=== PATIENT | female | born 1960 | race Hispanic/Latino ===

== ENCOUNTER 2016-08-07 15:15 | Emergency (ER) | payer MEDICAID | END 2016-08-07 16:00 | disposition left against medical advice (07) | LOC: ED 15:15 | DX: R10.9 Unspecified abdominal pain (principal); Z88.5 Allergy status to narcotic agent; Z88.8 Allergy status to other drugs, medicaments and biological substances; W19.XXXA Unspecified fall, initial encounter; Y93.89 Activity, other specified; Y99.9 Unspecified external cause status; Y92.89 Other specified places as the place of occurrence of the external cause; Z53.21 Procedure and treatment not carried out due to patient leaving prior to being seen by health care provider ==

== ENCOUNTER 2016-11-15 20:25 | Emergency (ER) | payer MEDICAID ==
[2016-11-15 21:41] LABS: Urine Drugs of Abuse Note Disclamer
[2016-11-15 21:43] LABS: Anion Gap 23 mmol/L; BUN/Creatinine Ratio 23.33; Blood Urea Nitrogen 21 mg/dL (7-17); Carbon Dioxide 20 mmol/L (22-30); Chloride 88.8 mmol/L (98-107); Potassium 3.7 mmol/L (3.6-5.0); Sodium 128 mmol/L (137-145)
[2016-11-15 21:50] LABS: Glucose 571 mg/dL (65-100)
[2016-11-15 21:51] LABS: Basophils % (Auto) 0.9 % (0.0-1.8); Eosinophils % (Auto) 0.2 % (0.0-4.3); Hematocrit 37.4 % (30.3-42.9); Hemoglobin 12.4 gm/dl (10.1-14.3); Mean Corpuscular HGB Conc 33 % (30-34); Mean Corpuscular Volume 78 fl (79-97); Platelet Count 265 K/mm3 (140-440); Red Cell Distribution Width 17.5 % (13.2-15.2); White Blood Count 12.2 K/mm3 (4.5-11.0)
[2016-11-15 21:54] LABS: Bacteria,Urine 3+ /HPF (Negative); Bilirubin,Urine NEG (Negative); Blood,Urine SM (Negative); Ketones,Urine NEG (Negative); Leukocyte Esterase,Urine TR (Negative); Mucus,Urine FEW /HPF; Nitrite,Urine NEG (Negative); Urobilinogen,Urine < 2.0 mg/dL (<2.0)
[2016-11-15 22:06] LABS: Mean Corpuscular Hemoglobin 26 pg (28-32)
[2016-11-16] MEDS ORDERED: PERCOCET 5/325 PO ONE (08:01)
[2016-11-16] MEDS ORDERED: MACROBID PO ONE (08:01)
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
[2016-11-16 08:19] LABS: Anion Gap 20 mmol/L; BUN/Creatinine Ratio 35.71; Blood Urea Nitrogen 25 mg/dL (7-17); Calcium 8.8 mg/dL (8.4-10.2); Carbon Dioxide 20 mmol/L (22-30); Glucose 322 mg/dL (65-100); Potassium 3.3 mmol/L (3.6-5.0); Sodium 137 mmol/L (137-145)
[2016-11-16] MEDS ORDERED: K-DUR PO NR (08:35)
[2016-11-16] MEDS ORDERED: NACL 0.9% 1000 ML 1,000 ML IV ONE (11:13)
[2016-11-16 11:40] VITALS: BP 150/90
== END 2016-11-16 12:53 | disposition home or self-care (01) ==
LOC: ED 20:25
DX: I10 Essential (primary) hypertension (principal); E11.65 Type 2 diabetes mellitus with hyperglycemia; Z91.14 Patient's other noncompliance with medication regimen; I21.3 ST elevation (STEMI) myocardial infarction of unspecified site; M19.90 Unspecified osteoarthritis, unspecified site; J44.9 Chronic obstructive pulmonary disease, unspecified; F32.9 Major depressive disorder, single episode, unspecified; F17.200 Nicotine dependence, unspecified, uncomplicated; Z90.49 Acquired absence of other specified parts of digestive tract; Z90.710 Acquired absence of both cervix and uterus; Z98.51 Tubal ligation status
CPT/HCPCS: 36415; 80048; 80307; 81001; 82805; 82962; 85025; 96361; 96372; 96374; 99283; G0480; J7030; 80320; J1815

== ENCOUNTER 2017-12-15 19:47 | Inpatient (IN) | payer MEDICAID ==
--- NOTE | 2017-12-15 20:08 | Emergency Department Report ---
History of Present Illness - General Stated Complaint: SUICIDAL/MH EVAL Time Seen by Provider: 12/15/17 20:05 Source: patient, EMS Mode of arrival: Stretcher Limitations: No Limitations - History of Present Illness Initial Comments: Patient is a 57-year-old female presents to emergency with complaints of overdose and suicide attempt. The patient states she wanted to kill herself. Patient states she wanted that also patient took a bunch of pills. Patient states she took multiple tabs of Prozac 20 mg, glipizide 5 mg, Januvia 100 mg, and Norvasc 10 mg, see below for list. Patient states she took all this in order to try to . Patient denies any physical symptoms at this time except feeling tired. Patient denies audiovisual hallucinations. Patient denies taking Tylenol or ibuprofen. Patient denies use of alcohol. she took: Norvasc 10mg she took 30 pills, Januvia 100mg she took 40 pills, Glipizide 5mg she took 30-40 pills, prozac 20mg she took 20 tabs. Complaint: intentional overdose -: Sudden Intent: suicide attempt How Overdose Was Discovered: called 911 Context: Intentional Overdose: relationship problems, work problems, financial issues Associated Symptoms: depression Treatments Prior to Arrival: none - Related Data Previous Rx's Medication Instructions Recorded Last Taken Type HYDROcodone/APAP 5-325 [[place] 1 each PO Q6HR PRN #10 tablet 11/16/16 Unknown Rx 5/325] Insulin Lispro Prot/Lispro 1,000 unit SQ PRN #1 vial 11/16/16 Unknown Rx [HumaLOG MIX 75/25] Syringe and Needle,Insulin,1Ml 1 each MC PRN #1 box 11/16/16 Unknown Rx [Comfort Ez] Vortioxetine Hydrobromide 10 mg PO QDAY #20 tablet 11/16/16 Unknown Rx [Trintellix] Allergies Allergy/AdvReac Type Severity Reaction Status Date / Time pregabalin [From Lyrica] Allergy Severe Anaphylaxis Verified 01/06/14 16:18 codeine Allergy Hives Verified 01/06/14 16:18 gabapentin Allergy Unknown Verified 05/13/16 21:38 ED Review of Systems ROS: Stated complaint: SUICIDAL/MH EVAL Other details as noted in HPI Constitutional: denies: chills, fever Eyes: denies: eye pain, eye discharge, vision change ENT: denies: ear pain, throat pain Respiratory: denies: cough, shortness of breath, wheezing Cardiovascular: denies: chest pain, palpitations Endocrine: no symptoms reported Gastrointestinal: denies: abdominal pain, nausea, diarrhea Genitourinary: denies: urgency, dysuria, discharge Musculoskeletal: denies: back pain, joint swelling, arthralgia Skin: denies: rash, lesions Neurological: denies: headache, weakness, paresthesias Psychiatric: depression, suicidal thoughts. denies: anxiety Hematological/Lymphatic: denies: easy bleeding, easy bruising ED Past Medical Hx - Past Medical History Previous Medical History?: Yes Hx Hypertension: Yes Hx Heart Attack/AMI: Yes Hx Congestive Heart Failure: No Hx Diabetes: Yes Hx Liver Disease: Yes (Hepatitis C) Hx Renal Disease: Yes (Kidney Failure) Hx Arthritis: Yes (RA) Hx Asthma: No Hx COPD: Yes Additional medical history: depression, fibromyalgia, TIA, chronic back pain, degenerative disc dz, States her female organs are falling - Surgical History Past Surgical History?: Yes Hx Open Heart Surgery: Yes Hx Cholecystectomy: Yes Additional Surgical History: Tubal Ligation, Hysterectomy - Family History Family history: hypertension - Social History Smoking Status: Current Every Day Smoker Substance Use Type: None - Medications Home Medications: Home Medications Medication Instructions Recorded Confirmed Last Taken Type HYDROcodone/APAP 5-325 [[place] 1 each PO Q6HR PRN #10 tablet 11/16/16 Unknown Rx 5/325] Insulin Lispro Prot/Lispro 1,000 unit SQ PRN #1 vial 11/16/16 Unknown Rx [HumaLOG MIX 75/25] Syringe and Needle,Insulin,1Ml 1 each MC PRN #1 box 11/16/16 Unknown Rx [Comfort Ez] Vortioxetine Hydrobromide 10 mg PO QDAY #20 tablet 11/16/16 Unknown Rx [Trintellix] ED Physical Exam - General General appearance: alert, in no apparent distress - Head Head exam: Present: atraumatic, normocephalic - Eye Eye exam: Present: normal appearance - ENT ENT exam: Present: mucous membranes moist - Neck Neck exam: Present: normal inspection - Respiratory Respiratory exam: Present: normal lung sounds bilaterally. Absent: respiratory distress - Cardiovascular Cardiovascular Exam: Present: regular rate, normal rhythm. Absent: systolic murmur, diastolic murmur, rubs, gallop - GI/Abdominal GI/Abdominal exam: Present: soft, normal bowel sounds - Extremities Exam Extremities exam: Present: normal inspection - Back Exam Back exam: Present: normal inspection - Neurological Exam Neurological exam: Present: alert, oriented X3 - Psychiatric Psychiatric exam: Present: depressed - Skin Skin exam: Present: warm, dry, intact, normal color. Absent: rash ED Course Vital Signs 12/15/17 12/15/17 12/15/17 20:07 20:28 20:53 Temperature 97.6 F Pulse Rate 109 H 102 H Respiratory 18 18 18 Rate Blood Pressure 119/81 Blood Pressure 119/81 [Right] O2 Sat by Pulse 98 Oximetry 12/15/17 12/15/17 12/15/17 21:03 21:16 21:30 Temperature Pulse Rate 99 H 92 H 89 Respiratory 11 L 22 20 Rate Blood Pressure Blood Pressure [Right] O2 Sat by Pulse 100 95 97 Oximetry 12/15/17 12/15/17 12/15/17 21:48 22:00 22:15 Temperature Pulse Rate 95 H 90 91 H Respiratory 28 H 13 17 Rate Blood Pressure 102/54 97/62 96/71 Blood Pressure [Right] O2 Sat by Pulse 100 97 Oximetry 12/15/17 12/15/17 12/15/17 22:30 22:48 23:00 Temperature Pulse Rate 88 89 84 Respiratory 20 18 Rate Blood Pressure 93/61 102/54 90/43 Blood Pressure [Right] O2 Sat by Pulse 97 95 Oximetry - Reevaluation(s) Reevaluation #1: poison controlled called. Recommendations received from poison control. Will follow recommendations from poison control and passed the recommendation onto the hospitalist 12/15/17 20:20 BENJAMÍN MCLAUGHLIN Female : 1960 MedRec# [id number] 12/15/17 20:15 - Nurse Note by SCOTTY DAMON Acct Num: [id number] : 1960 Patient Age: 57 not6ed received pt by [facility]. alert and talkative. pt stated she wanted to "take myself out of her" by overdosing on the following medications. assessed pt. call [place] poison control the following instructions were given: give activated Characoal 1gram/kg, draw the following labs cbc, cmp with a magnesium level, tylenol and alcohol level, obtain ekg, observe v/s and blood pressure. observe for hypokalemia, bradycardia, seizures and altered mental status. The following meds were taken by the pt. Norvasc 10mg she took 30 pills, Januvia 100mg she took 40 pills, Glipizide 5mg she took 30-40 pills and prozac 20mg she took 20 tabs. Initialized on 12/15/17 20:15 - END OF NOT Reevaluation #2: Discussed plan of care with patient. Patient will remain on a 1013 due to suicide attempt. Patient will be admitted to the hospitalist service for further evaluation and treatment and monitoring. Patient made aware of plan of care and agrees with plan of care. Discussed all labs with patient. 12/15/17 21:50 - Consultations Consultation #1: Hospitalist consulted for admission. Hospitalist to assume care and admit patient. 12/15/17 21:50 ED Medical Decision Making - Lab Data Result diagrams: 12/15/17 20:28 12/15/17 20:29 - EKG Data -: EKG Interpreted by Ca EKG shows normal: sinus rhythm, axis, intervals, QRS complexes, ST-T waves Rate: tachycardia - EKG Data Interpretation: other (pvc noted. ) - Medical Decision Making Patient is a 57-year-old female that presents emergency room with suicidal right -sided attempt by overdose on multiple medications. Poison control was made aware and recommendations have been received and followed.. Patient was admitted to the hospitalist service for further evaluation treatment. Poison control recommends observation of patient for 24-48 hours. - Differential Diagnosis od. si. suicide attempt. depression. elctrolyte imbal. Critical Care Time: Yes Critical care attestation.: If time is entered above; I have spent that time in minutes in the direct care of this critically ill patient, excluding procedure time. Critical Care Time: 35 minutes for cc time. ED Disposition Clinical Impression: Overdose Qualifiers: Encounter type: initial encounter Injury intent: intentional self-harm Qualified Code(s): T50.902A - Poisoning by unspecified drugs, medicaments and biological substances, intentional self-harm, initial encounter Suicidal overdose Qualifiers: Encounter type: initial encounter Qualified Code(s): T50.902A - Poisoning by unspecified drugs, medicaments and biological substances, intentional self-harm , initial encounter Disposition: DC-09 OP ADMIT IP TO THIS HOSP Is pt being admited?: Yes Does the pt Need Aspirin: No Condition: Critical Time of Disposition: 21:47
[2017-12-15] MEDS ORDERED: NACL 0.9% 1000 ML 1,000 ML IV ONE (20:21)
[2017-12-15] MEDS ORDERED: ACTIDOSE-AQUA PO ONE (20:21)
[2017-12-15 20:50] LABS: Basophils # (Auto) 0.1 K/mm3 (0.0-0.1); Eosinophils % (Auto) 0.4 % (0.0-4.3); Hematocrit 38.9 % (30.3-42.9); Hemoglobin 12.9 gm/dl (10.1-14.3); Lymphocytes # (Auto) 3.3 K/mm3 (1.2-5.4); Lymphocytes % (Auto) 28.8 % (13.4-35.0); Mean Corpuscular HGB Conc 33 % (30-34); Mean Corpuscular Hemoglobin 27 pg (28-32); Mean Corpuscular Volume 81 fl (79-97); Monocytes # (Auto) 0.7 K/mm3 (0.0-0.8); Monocytes % (Auto) 5.8 % (0.0-7.3); Platelet Count 223 K/mm3 (140-440); Red Blood Count 4.81 M/mm3 (3.65-5.03); Red Cell Distribution Width 16.5 % (13.2-15.2)
[2017-12-15 20:58] LABS: Alanine Aminotransferase 16 units/L (7-56); Albumin 4.3 g/dL (3.9-5); BUN/Creatinine Ratio 14; Blood Urea Nitrogen 10 mg/dL (7-17); Calcium 9.9 mg/dL (8.4-10.2); Hemolysis Index 23
[2017-12-15 21:22] LABS: Amphetamine Screen,Urine PRESUMPTIVE NEGATIVE; Benzodiazepines Screen,Urine PRESUMPTIVE NEGATIVE; Cannabinoid Screen,Urine PRESUMPTIVE NEGATIVE; Methadone Screen,Urine PRESUMPTIVE NEGATIVE; Opiate Screen,Urine PRESUMPTIVE NEGATIVE
[2017-12-15 21:39] LABS: Cocaine Screen,Urine PRESUMPTIVE POSITIVE
[2017-12-15] MEDS ORDERED: SODIUM CHLORIDE FLUSH SYRINGE 10 ML IV PRN (23:27)
[2017-12-15] MEDS ORDERED: ZOFRAN IV PRN (23:27)
--- NOTE | 2017-12-15 23:30 | History and Physical Report ---
History of Present Illness Date of examination: 12/15/17 History of present illness: 57-year-old man with a history of hypertension, diabetes, CAD, seizure, TIA comes to the emergency room for because she tried to kill herself by taking several different pills blood pressure and diabetic pills. She is homeless and feels hopeless, she ran out of money Review of systems Constitutional: no weight loss, chills Ears, eyes, nose, mouth and throat: no nasal congestion, no nasal discharge, no sinus pressure, no vision change, no red eye. Neck: No neck pain or rigidity. Cardiovascular: no chest pain, palpitations Respiratory: No cough, shortness of breath Gastrointestinal: no abdominal pain, hematochezia Genitourinary : no dysuria, frequency , no hematuria Musculoskeletal: no joint swelling or muscle ache Integumentary: no rash, no pruritis Neurological: no parathesias, no numbness, no focal weakness Endocrine: no cold or heat intolerance, no polyuria or polydipsia Hematologic/Lymphatic: no easy bruising, no easy bleeding, no gland swelling Allergic/Immunologic: no urticaria, no angioedema. PAST MEDICAL HISTORY:hypertension, diabetes, CAD, seizure, TIA PAST SURGICAL HISTORY: CABG, hysterectomy, gallbladder SOCIAL HISTORY:smoke 2 packs/day, no alcohol or drugs FAMILY HISTORY: Hypertension Medications and Allergies Allergies Allergy/AdvReac Type Severity Reaction Status Date / Time pregabalin [From Lyrica] Allergy Severe Anaphylaxis Verified 01/06/14 16:18 codeine Allergy Hives Verified 01/06/14 16:18 gabapentin Allergy Unknown Verified 05/13/16 21:38 Home Medications Medication Instructions Recorded Confirmed Last Taken Type HYDROcodone/APAP 5-325 [[place] 1 each PO Q6HR PRN #10 tablet 11/16/16 Unknown Rx 5/325] Insulin Lispro Prot/Lispro 1,000 unit SQ PRN #1 vial 11/16/16 Unknown Rx [HumaLOG MIX 75/25] Syringe and Needle,Insulin,1Ml 1 each MC PRN #1 box 11/16/16 Unknown Rx [Comfort Ez] Vortioxetine Hydrobromide 10 mg PO QDAY #20 tablet 11/16/16 Unknown Rx [Trintellix] Exam - Physical Exam Narrative exam: Gen. appearance: Patient lying in bed, no apparent distress HEENT: Normocephalic, atraumatic, pupils equally round and reactive to light, extraocular movement intact, and no sclericterus,. No JVD or thyromegaly or nodule,neck supple, no carotid bruit ,mucous membranes moist, no exudate or erythema Heart: S1, S2, regular rate and rhythm Lungs: Clear bilaterally, breathing comfortable Abdomen: Positive bowel sounds, non-tender, nondistended, no organomegaly Extremity:no edema cyanosis, clubbing Skin: no rash, dry, warm Neuro: Oriented 3, cranial nerves II-12 intact, speech is fluent, motor and sensory intact - Constitutional Vitals: Temp Pulse Resp BP Pulse Ox 97.6 F 84 18 90/43 95 12/15/17 20:07 12/15/17 23:00 12/15/17 23:00 12/15/17 23:00 12/15/17 23:00 Results - Labs CBC & Chem 7: 12/15/17 20:28 12/15/17 20:29 Labs: Abnormal lab results 12/15/17 12/15/17 12/15/17 Range/Units 20:28 20:29 20:30 WBC 11.6 H (4.5-11.0) K/mm3 MCH 27 L (28-32) pg RDW 16.5 H (13.2-15.2) % Carbon Dioxide 21 L (22-30) mmol/L Glucose 115 H (65-100) mg/dL Salicylates < 0.3 L (2.8-20.0) mg/dL Acetaminophen (10.0-30.0) ug/mL 12/15/17 Range/Units 20:30 WBC (4.5-11.0) K/mm3 MCH (28-32) pg RDW (13.2-15.2) % Carbon Dioxide (22-30) mmol/L Glucose (65-100) mg/dL Salicylates (2.8-20.0) mg/dL Acetaminophen < 5.0 L (10.0-30.0) ug/mL - Imaging and Cardiology EKG: report reviewed Assessment and Plan Assessment Drug Overdose Suicidal hypertension diabetes CAD seizure TIA Substance abuse Plan Admit to medicine Place with a sitter, 1013 Monitor fingersticks, vitals psych consult, start IV fluid DVT prophalaxis
[2017-12-16] MEDS: NACL 0.45% 1000 ML 1,000 ML IV SCH ×2 (06:25→19:44)
[2017-12-16 06:29] LABS: Basophils # (Auto) 0.1 K/mm3 (0.0-0.1); Basophils % (Auto) 1.2 % (0.0-1.8); Eosinophils # (Auto) 0.1 K/mm3 (0.0-0.4); Eosinophils % (Auto) 0.6 % (0.0-4.3); Hematocrit 36.2 % (30.3-42.9); Hemoglobin 12.2 gm/dl (10.1-14.3); Lymphocytes % (Auto) 19.7 % (13.4-35.0); Mean Corpuscular HGB Conc 34 % (30-34); Mean Corpuscular Hemoglobin 27 pg (28-32); Mean Corpuscular Volume 81 fl (79-97); Monocytes # (Auto) 0.8 K/mm3 (0.0-0.8); Monocytes % (Auto) 7.5 % (0.0-7.3); Platelet Count 233 K/mm3 (140-440); Red Blood Count 4.46 M/mm3 (3.65-5.03); Red Cell Distribution Width 16.6 % (13.2-15.2)
[2017-12-16 07:14] LABS: Calcium 8.9 mg/dL (8.4-10.2)
[2017-12-16] MEDS: LOVENOX SUB-Q SCH (09:38)
[2017-12-16] MEDS: SODIUM CHLORIDE FLUSH SYRINGE 10 ML IV SCH ×2 (10:00→22:32)
[2017-12-16] MEDS ORDERED: LOVENOX SUB-Q SCH (10:00)
--- NOTE | 2017-12-16 11:46 | Progress Note ---
Assessment and Plan Assessment and plan: Suicidal ideation. Continue 1013. Psych consultation pending. Drug overdose. Continue to monitor on telemetry. Supportive care. Hypertension. Resume antihypertensive medications as needed. Diabetes mellitus type 2. Continue Accu-Cheks and sliding scale and some. Coronary artery disease. Stable. Seizure disorder. Continue AEDs. History TIA. Chronic back pain. Start Percocet every 6 hours when necessary. History Interval history: No new issues overnight. Patient complains of chronic back pain. Hospitalist Physical - Constitutional Vitals: Temp Pulse Resp BP Pulse Ox 97.6 F 77 18 95/58 96 12/16/17 08:12 12/16/17 08:12 12/16/17 08:12 12/16/17 08:12 12/16/17 11:26 General appearance: Present: no acute distress, well-nourished - EENT Eyes: Present: PERRL, EOM intact ENT: hearing intact, clear oral mucosa, dentition normal - Neck Neck: Present: supple, normal ROM - Respiratory Respiratory effort: normal Respiratory: bilateral: CTA - Cardiovascular Rhythm: regular Heart Sounds: Present: S1 & S2. Absent: gallop, rub - Extremities Extremities: no ischemia, No edema, Full ROM - Abdominal General gastrointestinal: soft, non-tender, non-distended, normal bowel sounds - Integumentary Integumentary: Present: clear, warm, dry - Neurologic Neurologic: CNII-XII intact, moves all extremities Results - Labs CBC & Chem 7: 12/16/17 05:47 12/16/17 05:47 Labs: Laboratory Last Values WBC 10.1 K/mm3 (4.5-11.0) 12/16/17 05:47 RBC 4.46 M/mm3 (3.65-5.03) 12/16/17 05:47 Hgb 12.2 gm/dl (10.1-14.3) 12/16/17 05:47 Hct 36.2 % (30.3-42.9) 12/16/17 05:47 MCV 81 fl (79-97) 12/16/17 05:47 MCH 27 pg (28-32) L 12/16/17 05:47 MCHC 34 % (30-34) 12/16/17 05:47 RDW 16.6 % (13.2-15.2) H 12/16/17 05:47 Plt Count 233 K/mm3 (140-440) 12/16/17 05:47 Lymph % (Auto) 19.7 % (13.4-35.0) 12/16/17 05:47 Love % (Auto) 7.5 % (0.0-7.3) H 12/16/17 05:47 Eos % (Auto) 0.6 % (0.0-4.3) 12/16/17 05:47 Baso % (Auto) 1.2 % (0.0-1.8) 12/16/17 05:47 Lymph # 2.0 K/mm3 (1.2-5.4) 12/16/17 05:47 Love # 0.8 K/mm3 (0.0-0.8) 12/16/17 05:47 Eos # 0.1 K/mm3 (0.0-0.4) 12/16/17 05:47 Baso # 0.1 K/mm3 (0.0-0.1) 12/16/17 05:47 Seg Neutrophils % 71.0 % (40.0-70.0) H 12/16/17 05:47 Seg Neutrophils # 7.1 K/mm3 (1.8-7.7) 12/16/17 05:47 Sodium 136 mmol/L (137-145) L 12/16/17 05:47 Potassium 3.8 mmol/L (3.6-5.0) 12/16/17 05:47 Chloride 101.3 mmol/L (98-107) 12/16/17 05:47 Carbon Dioxide 20 mmol/L (22-30) L 12/16/17 05:47 Anion Gap 19 mmol/L 12/16/17 05:47 BUN 13 mg/dL (7-17) 12/16/17 05:47 Creatinine 1.2 mg/dL (0.7-1.2) D 12/16/17 05:47 Estimated GFR 46 ml/min 12/16/17 05:47 BUN/Creatinine Ratio 11 % 12/16/17 05:47 Glucose 207 mg/dL (65-100) H 12/16/17 05:47 Calcium 8.9 mg/dL (8.4-10.2) 12/16/17 05:47 Magnesium 2.00 mg/dL (1.7-2.3) 12/15/17 20:29 Total Bilirubin 0.50 mg/dL (0.1-1.2) 12/15/17 20:29 AST 19 units/L (5-40) 12/15/17 20:29 ALT 16 units/L (7-56) 12/15/17 20:29 Alkaline Phosphatase 104 units/L (35-129) 12/15/17 20:29 Total Protein 7.8 g/dL (6.3-8.2) 12/15/17 20:29 Albumin 4.3 g/dL (3.9-5) 12/15/17 20:29 Albumin/Globulin Ratio 1.2 % 12/15/17 20:29 Salicylates < 0.3 mg/dL (2.8-20.0) L 12/15/17 20:30 Urine Opiates Screen Presumptive negative 12/15/17 20:54 Urine Methadone Screen Presumptive negative 12/15/17 20:54 Acetaminophen < 5.0 ug/mL (10.0-30.0) L 12/15/17 20:30 Ur Barbiturates Screen Presumptive negative 12/15/17 20:54 Ur Phencyclidine Scrn Presumptive negative 12/15/17 20:54 Ur Amphetamines Screen Presumptive negative 12/15/17 20:54 U Benzodiazepines Scrn Presumptive negative 12/15/17 20:54 Urine Cocaine Screen Presumptive positive 12/15/17 20:54 U Marijuana (THC) Screen Presumptive negative 12/15/17 20:54 Drugs of Abuse Note Disclamer 12/15/17 20:54 Plasma/Serum Alcohol < 0.01 % (0-0.07) 12/15/17 20:30
[2017-12-16] MEDS: TYLENOL PO PRN ×2 (12:06→19:48)
[2017-12-16] MEDS: PERCOCET 5/325 PO PRN ×2 (15:00→21:01)
[2017-12-16] MEDS: MYLICON PO PRN (21:01)
[2017-12-16] MEDS: HABITROL TD SCH (22:31)
[2017-12-17] MEDS: MYLICON PO PRN (03:18)
[2017-12-17] MEDS: PERCOCET 5/325 PO PRN ×2 (03:18→09:40)
[2017-12-17 05:06] LABS: Basophils # (Auto) 0.1 K/mm3 (0.0-0.1); Basophils % (Auto) 0.5 % (0.0-1.8); Eosinophils # (Auto) 0.1 K/mm3 (0.0-0.4); Eosinophils % (Auto) 1.2 % (0.0-4.3); Hemoglobin 11.9 gm/dl (10.1-14.3); Lymphocytes # (Auto) 3.6 K/mm3 (1.2-5.4); Lymphocytes % (Auto) 34.2 % (13.4-35.0); Mean Corpuscular HGB Conc 34 % (30-34); Mean Corpuscular Hemoglobin 27 pg (28-32); Mean Corpuscular Volume 81 fl (79-97); Monocytes # (Auto) 0.6 K/mm3 (0.0-0.8); Monocytes % (Auto) 5.2 % (0.0-7.3); Platelet Count 221 K/mm3 (140-440); Red Blood Count 4.34 M/mm3 (3.65-5.03); Red Cell Distribution Width 16.1 % (13.2-15.2)
[2017-12-17 05:12] LABS: Calcium 8.7 mg/dL (8.4-10.2)
[2017-12-17] MEDS: NACL 0.45% 1000 ML 1,000 ML IV SCH ×2 (08:08→22:02)
[2017-12-17] MEDS: HABITROL TD SCH (09:39)
[2017-12-17] MEDS: LOVENOX SUB-Q SCH (09:39)
[2017-12-17] MEDS: SODIUM CHLORIDE FLUSH SYRINGE 10 ML IV SCH ×2 (09:44→22:03)
--- NOTE | 2017-12-17 11:12 | Progress Note ---
Assessment and Plan Assessment and plan: Suicidal ideation. Continue 1013. Psych consultation pending. Drug overdose. Continue to monitor on telemetry. Supportive care. Hypokalemia. Replete potassium. Hypertension. Resume antihypertensive medications as needed. Diabetes mellitus type 2. Continue Accu-Cheks and sliding scale and some. Coronary artery disease. Stable. Seizure disorder. Continue AEDs. History TIA. Chronic back pain. Continue Percocet every 6 hours when necessary. And morphine when necessary History Interval history: No new issues overnight. Patient complains of chronic back pain. Hospitalist Physical - Constitutional Vitals: Temp Pulse Resp BP Pulse Ox 98.0 F 80 20 131/65 98 12/17/17 08:21 12/17/17 10:00 12/17/17 10:00 12/17/17 08:21 12/17/17 10:00 General appearance: Present: no acute distress, well-nourished - EENT Eyes: Present: PERRL, EOM intact ENT: hearing intact, clear oral mucosa, dentition normal - Neck Neck: Present: supple, normal ROM - Respiratory Respiratory effort: normal Respiratory: bilateral: CTA - Cardiovascular Rhythm: regular Heart Sounds: Present: S1 & S2. Absent: gallop, rub - Extremities Extremities: no ischemia, No edema, Full ROM - Abdominal General gastrointestinal: soft, non-tender, non-distended, normal bowel sounds - Integumentary Integumentary: Present: clear, warm, dry - Neurologic Neurologic: CNII-XII intact, moves all extremities Results - Labs CBC & Chem 7: 12/17/17 03:46 12/17/17 03:46 Labs: Laboratory Last Values WBC 10.6 K/mm3 (4.5-11.0) 12/17/17 03:46 RBC 4.34 M/mm3 (3.65-5.03) 12/17/17 03:46 Hgb 11.9 gm/dl (10.1-14.3) 12/17/17 03:46 Hct 35.0 % (30.3-42.9) 12/17/17 03:46 MCV 81 fl (79-97) 12/17/17 03:46 MCH 27 pg (28-32) L 12/17/17 03:46 MCHC 34 % (30-34) 12/17/17 03:46 RDW 16.1 % (13.2-15.2) H 12/17/17 03:46 Plt Count 221 K/mm3 (140-440) 12/17/17 03:46 Lymph % (Auto) 34.2 % (13.4-35.0) 12/17/17 03:46 [place] % (Auto) 5.2 % (0.0-7.3) 12/17/17 03:46 Eos % (Auto) 1.2 % (0.0-4.3) 12/17/17 03:46 Baso % (Auto) 0.5 % (0.0-1.8) 12/17/17 03:46 Lymph # 3.6 K/mm3 (1.2-5.4) 12/17/17 03:46 [place] # 0.6 K/mm3 (0.0-0.8) 12/17/17 03:46 Eos # 0.1 K/mm3 (0.0-0.4) 12/17/17 03:46 Baso # 0.1 K/mm3 (0.0-0.1) 12/17/17 03:46 Seg Neutrophils % 58.9 % (40.0-70.0) 12/17/17 03:46 Seg Neutrophils # 6.3 K/mm3 (1.8-7.7) 12/17/17 03:46 Sodium 136 mmol/L (137-145) L 12/17/17 03:46 Potassium 3.2 mmol/L (3.6-5.0) L 12/17/17 03:46 Chloride 98.9 mmol/L (98-107) 12/17/17 03:46 Carbon Dioxide 21 mmol/L (22-30) L 12/17/17 03:46 Anion Gap 19 mmol/L 12/17/17 03:46 BUN 11 mg/dL (7-17) 12/17/17 03:46 Creatinine 1.0 mg/dL (0.7-1.2) 12/17/17 03:46 Estimated GFR 57 ml/min 12/17/17 03:46 BUN/Creatinine Ratio 11 % 12/17/17 03:46 Glucose 145 mg/dL (65-100) H 12/17/17 03:46 POC Glucose 128 (70-105) H 12/17/17 05:09 Calcium 8.7 mg/dL (8.4-10.2) 12/17/17 03:46 Magnesium 2.00 mg/dL (1.7-2.3) 12/15/17 20:29 Total Bilirubin 0.50 mg/dL (0.1-1.2) 12/15/17 20:29 AST 19 units/L (5-40) 12/15/17 20:29 ALT 16 units/L (7-56) 12/15/17 20:29 Alkaline Phosphatase 104 units/L (35-129) 12/15/17 20:29 Total Protein 7.8 g/dL (6.3-8.2) 12/15/17 20:29 Albumin 4.3 g/dL (3.9-5) 12/15/17 20:29 Albumin/Globulin Ratio 1.2 % 12/15/17 20:29 Salicylates < 0.3 mg/dL (2.8-20.0) L 12/15/17 20:30 Urine Opiates Screen Presumptive negative 12/15/17 20:54 Urine Methadone Screen Presumptive negative 12/15/17 20:54 Acetaminophen < 5.0 ug/mL (10.0-30.0) L 12/15/17 20:30 Ur Barbiturates Screen Presumptive negative 12/15/17 20:54 Ur Phencyclidine Scrn Presumptive negative 12/15/17 20:54 Ur Amphetamines Screen Presumptive negative 12/15/17 20:54 U Benzodiazepines Scrn Presumptive negative 12/15/17 20:54 Urine Cocaine Screen Presumptive positive 12/15/17 20:54 U Marijuana (THC) Screen Presumptive negative 12/15/17 20:54 Drugs of Abuse Note Disclamer 12/15/17 20:54 Plasma/Serum Alcohol < 0.01 % (0-0.07) 12/15/17 20:30
[2017-12-17] MEDS ORDERED: D50W (25GM) Syringe IV PRN (11:17)
[2017-12-17] MEDS ORDERED: K-DUR PO ONE (12:00)
[2017-12-17] MEDS: HumuLIN R SUB-Q SCH ×3 (13:39→22:03)
[2017-12-17] MEDS: MORPHINE IV PRN ×2 (13:49→22:03)
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
[2017-12-17] MEDS: REMERON PO SCH (22:03)
[2017-12-18 06:09] LABS: BUN/Creatinine Ratio 19; Blood Urea Nitrogen 13 mg/dL (7-17); Calcium 9.2 mg/dL (8.4-10.2); Hemolysis Index 15
[2017-12-18] MEDS: MORPHINE IV PRN ×3 (06:28→21:39)
[2017-12-18] MEDS ORDERED: NORVASC PO ONE (06:41)
[2017-12-18] MEDS: HumuLIN R SUB-Q SCH ×4 (07:30→21:32)
[2017-12-18] MEDS: HABITROL TD SCH (09:41)
[2017-12-18] MEDS: LOVENOX SUB-Q SCH (09:41)
[2017-12-18] MEDS: VISTARIL PO PRN ×2 (09:42→21:51)
[2017-12-18] MEDS: SODIUM CHLORIDE FLUSH SYRINGE 10 ML IV SCH ×2 (09:42→21:46)
--- NOTE | 2017-12-18 11:52 | Progress Note ---
Assessment and Plan Assessment and plan: Suicidal ideation. Continue 1013. Drug overdose. Continue to monitor on telemetry. Supportive care. Hypokalemia. Replete potassium. Hypertension. Resume antihypertensive medications as needed. Diabetes mellitus type 2. Continue Accu-Cheks and sliding scale and some. Coronary artery disease. Stable. Seizure disorder. Continue AEDs. History TIA. Chronic back pain. Continue Percocet every 6 hours when necessary. Added morphine when necessary for breakthrough pain Disposition. Patient is medically cleared for psych inpatient discharge. History Interval history: No new issues overnight. Patient complains of chronic back pain. Hospitalist Physical - Constitutional Vitals: Temp Pulse Resp BP Pulse Ox 97.9 F 95 H 18 143/84 96 12/18/17 07:46 12/18/17 07:46 12/18/17 07:46 12/18/17 07:46 12/18/17 07:46 General appearance: Present: no acute distress, well-nourished - EENT Eyes: Present: PERRL, EOM intact ENT: hearing intact, clear oral mucosa, dentition normal - Neck Neck: Present: supple, normal ROM - Respiratory Respiratory effort: normal Respiratory: bilateral: CTA - Cardiovascular Rhythm: regular Heart Sounds: Present: S1 & S2. Absent: gallop, rub - Extremities Extremities: no ischemia, No edema, Full ROM - Abdominal General gastrointestinal: soft, non-tender, non-distended, normal bowel sounds - Integumentary Integumentary: Present: clear, warm, dry - Neurologic Neurologic: CNII-XII intact, moves all extremities Results - Labs CBC & Chem 7: 12/17/17 03:46 12/18/17 04:52 Labs: Laboratory Last Values WBC 10.6 K/mm3 (4.5-11.0) 12/17/17 03:46 RBC 4.34 M/mm3 (3.65-5.03) 12/17/17 03:46 Hgb 11.9 gm/dl (10.1-14.3) 12/17/17 03:46 Hct 35.0 % (30.3-42.9) 12/17/17 03:46 MCV 81 fl (79-97) 12/17/17 03:46 MCH 27 pg (28-32) L 12/17/17 03:46 MCHC 34 % (30-34) 12/17/17 03:46 RDW 16.1 % (13.2-15.2) H 12/17/17 03:46 Plt Count 221 K/mm3 (140-440) 12/17/17 03:46 Lymph % (Auto) 34.2 % (13.4-35.0) 12/17/17 03:46 [place] % (Auto) 5.2 % (0.0-7.3) 12/17/17 03:46 Eos % (Auto) 1.2 % (0.0-4.3) 12/17/17 03:46 Baso % (Auto) 0.5 % (0.0-1.8) 12/17/17 03:46 Lymph # 3.6 K/mm3 (1.2-5.4) 12/17/17 03:46 [place] # 0.6 K/mm3 (0.0-0.8) 12/17/17 03:46 Eos # 0.1 K/mm3 (0.0-0.4) 12/17/17 03:46 Baso # 0.1 K/mm3 (0.0-0.1) 12/17/17 03:46 Seg Neutrophils % 58.9 % (40.0-70.0) 12/17/17 03:46 Seg Neutrophils # 6.3 K/mm3 (1.8-7.7) 12/17/17 03:46 Sodium 140 mmol/L (137-145) 12/18/17 04:52 Potassium 4.1 mmol/L (3.6-5.0) D 12/18/17 04:52 Chloride 103.0 mmol/L (98-107) 12/18/17 04:52 Carbon Dioxide 21 mmol/L (22-30) L 12/18/17 04:52 Anion Gap 20 mmol/L 12/18/17 04:52 BUN 13 mg/dL (7-17) 12/18/17 04:52 Creatinine 0.7 mg/dL (0.7-1.2) 12/18/17 04:52 Estimated GFR > 60 ml/min 12/18/17 04:52 BUN/Creatinine Ratio 19 % 12/18/17 04:52 Glucose 175 mg/dL (65-100) H 12/18/17 04:52 POC Glucose 149 (70-105) H 12/18/17 06:20 Hemoglobin A1c 8.7 % (4-6) H 12/17/17 03:46 Calcium 9.2 mg/dL (8.4-10.2) 12/18/17 04:52 Magnesium 2.00 mg/dL (1.7-2.3) 12/15/17 20:29 Total Bilirubin 0.50 mg/dL (0.1-1.2) 12/15/17 20:29 AST 19 units/L (5-40) 12/15/17 20:29 ALT 16 units/L (7-56) 12/15/17 20:29 Alkaline Phosphatase 104 units/L (35-129) 12/15/17 20:29 Total Protein 7.8 g/dL (6.3-8.2) 12/15/17 20:29 Albumin 4.3 g/dL (3.9-5) 12/15/17 20:29 Albumin/Globulin Ratio 1.2 % 12/15/17 20:29 Salicylates < 0.3 mg/dL (2.8-20.0) L 12/15/17 20:30 Urine Opiates Screen Presumptive negative 12/15/17 20:54 Urine Methadone Screen Presumptive negative 12/15/17 20:54 Acetaminophen < 5.0 ug/mL (10.0-30.0) L 12/15/17 20:30 Ur Barbiturates Screen Presumptive negative 12/15/17 20:54 Ur Phencyclidine Scrn Presumptive negative 12/15/17 20:54 Ur Amphetamines Screen Presumptive negative 12/15/17 20:54 U Benzodiazepines Scrn Presumptive negative 12/15/17 20:54 Urine Cocaine Screen Presumptive positive 12/15/17 20:54 U Marijuana (THC) Screen Presumptive negative 12/15/17 20:54 Drugs of Abuse Note Disclamer 12/15/17 20:54 Plasma/Serum Alcohol < 0.01 % (0-0.07) 12/15/17 20:30
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
[2017-12-18] MEDS: NORVASC PO SCH (21:39)
[2017-12-18] MEDS: HCTZ PO SCH (21:39)
[2017-12-18] MEDS: IMDUR PO SCH (21:39)
[2017-12-18] MEDS: REMERON PO SCH (21:39)
[2017-12-19] MEDS: MORPHINE IV PRN ×3 (05:48→22:23)
[2017-12-19] MEDS: HumuLIN R SUB-Q SCH ×4 (09:05→22:03)
[2017-12-19] MEDS: IMDUR PO SCH (10:36)
[2017-12-19] MEDS: HABITROL TD SCH (10:36)
[2017-12-19] MEDS: HCTZ PO SCH (10:36)
[2017-12-19] MEDS: TRADJENTA PO SCH (10:37)
[2017-12-19] MEDS: LOVENOX SUB-Q SCH (10:37)
[2017-12-19] MEDS: SODIUM CHLORIDE FLUSH SYRINGE 10 ML IV SCH ×2 (10:39→22:02)
[2017-12-19] MEDS: VISTARIL PO PRN ×2 (10:55→17:43)
[2017-12-19] MEDS: NORVASC PO SCH (10:55)
[2017-12-19] MEDS: MYLICON PO PRN (14:38)
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
[2017-12-19] MEDS: REMERON PO SCH (22:02)
[2017-12-20] MEDS: VISTARIL PO PRN ×3 (00:17→13:02)
[2017-12-20] MEDS: MORPHINE IV PRN ×3 (07:11→22:33)
[2017-12-20] MEDS: HumuLIN R SUB-Q SCH ×4 (08:46→22:35)
[2017-12-20] MEDS: LOVENOX SUB-Q SCH (10:36)
[2017-12-20] MEDS: HCTZ PO SCH (10:37)
[2017-12-20] MEDS: TRADJENTA PO SCH (10:37)
[2017-12-20] MEDS: NORVASC PO SCH (10:37)
[2017-12-20] MEDS: HABITROL TD SCH (10:38)
[2017-12-20] MEDS: IMDUR PO SCH (10:38)
[2017-12-20] MEDS: SODIUM CHLORIDE FLUSH SYRINGE 10 ML IV SCH ×2 (10:38→22:05)
--- NOTE | 2017-12-20 11:45 | Progress Note ---
Assessment and Plan Assessment and plan: Suicidal ideation. Continue 1013. Drug overdose. Continue to monitor on telemetry. Supportive care. Hypokalemia. Replete potassium. Hypertension. Resume antihypertensive medications as needed. Diabetes mellitus type 2. Continue Accu-Cheks and sliding scale and some. Coronary artery disease. Stable. Seizure disorder. Continue AEDs. History TIA. Chronic back pain. Continue Percocet every 6 hours when necessary. Added morphine when necessary for breakthrough pain Disposition. Patient is medically cleared for psych inpatient discharge. History Interval history: No new issues overnight. Patient complains of chronic back pain. Hospitalist Physical - Constitutional Vitals: Temp Pulse Resp BP Pulse Ox 97.5 F L 80 18 144/85 94 12/20/17 07:56 12/20/17 10:38 12/20/17 07:56 12/20/17 10:38 12/20/17 07:56 General appearance: Present: no acute distress, well-nourished - EENT Eyes: Present: PERRL, EOM intact ENT: hearing intact, clear oral mucosa, dentition normal - Neck Neck: Present: supple, normal ROM - Respiratory Respiratory effort: normal Respiratory: bilateral: CTA - Cardiovascular Rhythm: regular Heart Sounds: Present: S1 & S2. Absent: gallop, rub - Extremities Extremities: no ischemia, No edema, Full ROM - Abdominal General gastrointestinal: soft, non-tender, non-distended, normal bowel sounds - Integumentary Integumentary: Present: clear, warm, dry - Neurologic Neurologic: CNII-XII intact, moves all extremities Results - Labs CBC & Chem 7: 12/17/17 03:46 12/18/17 04:52 Labs: Laboratory Last Values WBC 10.6 K/mm3 (4.5-11.0) 12/17/17 03:46 RBC 4.34 M/mm3 (3.65-5.03) 12/17/17 03:46 Hgb 11.9 gm/dl (10.1-14.3) 12/17/17 03:46 Hct 35.0 % (30.3-42.9) 12/17/17 03:46 MCV 81 fl (79-97) 12/17/17 03:46 MCH 27 pg (28-32) L 12/17/17 03:46 MCHC 34 % (30-34) 12/17/17 03:46 RDW 16.1 % (13.2-15.2) H 12/17/17 03:46 Plt Count 221 K/mm3 (140-440) 12/17/17 03:46 Lymph % (Auto) 34.2 % (13.4-35.0) 12/17/17 03:46 [place] % (Auto) 5.2 % (0.0-7.3) 12/17/17 03:46 Eos % (Auto) 1.2 % (0.0-4.3) 12/17/17 03:46 Baso % (Auto) 0.5 % (0.0-1.8) 12/17/17 03:46 Lymph # 3.6 K/mm3 (1.2-5.4) 12/17/17 03:46 [place] # 0.6 K/mm3 (0.0-0.8) 12/17/17 03:46 Eos # 0.1 K/mm3 (0.0-0.4) 12/17/17 03:46 Baso # 0.1 K/mm3 (0.0-0.1) 12/17/17 03:46 Seg Neutrophils % 58.9 % (40.0-70.0) 12/17/17 03:46 Seg Neutrophils # 6.3 K/mm3 (1.8-7.7) 12/17/17 03:46 Sodium 140 mmol/L (137-145) 12/18/17 04:52 Potassium 4.1 mmol/L (3.6-5.0) D 12/18/17 04:52 Chloride 103.0 mmol/L (98-107) 12/18/17 04:52 Carbon Dioxide 21 mmol/L (22-30) L 12/18/17 04:52 Anion Gap 20 mmol/L 12/18/17 04:52 BUN 13 mg/dL (7-17) 12/18/17 04:52 Creatinine 0.7 mg/dL (0.7-1.2) 12/18/17 04:52 Estimated GFR > 60 ml/min 12/18/17 04:52 BUN/Creatinine Ratio 19 % 12/18/17 04:52 Glucose 175 mg/dL (65-100) H 12/18/17 04:52 POC Glucose 185 (70-105) H 12/20/17 07:58 Hemoglobin A1c 8.7 % (4-6) H 12/17/17 03:46 Calcium 9.2 mg/dL (8.4-10.2) 12/18/17 04:52 Magnesium 2.00 mg/dL (1.7-2.3) 12/15/17 20:29 Total Bilirubin 0.50 mg/dL (0.1-1.2) 12/15/17 20:29 AST 19 units/L (5-40) 12/15/17 20:29 ALT 16 units/L (7-56) 12/15/17 20:29 Alkaline Phosphatase 104 units/L (35-129) 12/15/17 20:29 Total Protein 7.8 g/dL (6.3-8.2) 12/15/17 20:29 Albumin 4.3 g/dL (3.9-5) 12/15/17 20:29 Albumin/Globulin Ratio 1.2 % 12/15/17 20:29 Salicylates < 0.3 mg/dL (2.8-20.0) L 12/15/17 20:30 Urine Opiates Screen Presumptive negative 12/15/17 20:54 Urine Methadone Screen Presumptive negative 12/15/17 20:54 Acetaminophen < 5.0 ug/mL (10.0-30.0) L 12/15/17 20:30 Ur Barbiturates Screen Presumptive negative 12/15/17 20:54 Ur Phencyclidine Scrn Presumptive negative 12/15/17 20:54 Ur Amphetamines Screen Presumptive negative 12/15/17 20:54 U Benzodiazepines Scrn Presumptive negative 12/15/17 20:54 Urine Cocaine Screen Presumptive positive 12/15/17 20:54 U Marijuana (THC) Screen Presumptive negative 12/15/17 20:54 Drugs of Abuse Note Disclamer 12/15/17 20:54 Plasma/Serum Alcohol < 0.01 % (0-0.07) 12/15/17 20:30
--- NOTE | 2017-12-20 12:00 | Progress Note ---
Subjective - Reason for Consult Consult date: 12/20/17 Reason for consult: Psychiatry [place] - Chief Complaint Chief complaint: "I need to get it together" 57-year-old female presents to emergency with complaints of overdose and suicide attempt. Today the patient is calm and cooperative during the assessment. She stated that her life can get better if she think about her decision making. She stated that her actions previously have been unsafe. She denies SI/HI's and AVH's. She denies any side effects of her medications. Mental Status Exam - Vital signs Last Vital Signs Temp 97.5 F L 12/20/17 07:56 Pulse 80 12/20/17 10:38 Resp 18 12/20/17 07:56 BP 144/85 12/20/17 10:38 Pulse Ox 94 12/20/17 07:56 - Exam Narrative exam: MSE: Appearance: calm, cooperative Behavior: regular eye contact Speech: regular rate and tone Mood: "okay" Affect: congruent to mood Thought Process: logical Thought Content: denies SI/HI's and AVH's Motor Activity: ambulatory Cognition: A/O x 3 Insight: fair Judgment: fair Assessment and Plan Impression: MDD, Severe Type. Unspecified Anxiety DO. Substance Use DO (cocaine) . Today the patient is calm and cooperative during the assessment. DDx: R/O Bipolar DO, R/O Substance Induced Mood DO Recommendation/Plan: Reevaluate 1013 in 24 hours to determine proper dispo. Continue Remeron 15 mg Po HS for depression and Vistaril 25 mg PO Q6hrs PRN for acute anxiety. Discussed possible suicidality/medication induced funmi with the patient reference Remeron.
[2017-12-20] MEDS: MYLICON PO PRN (22:04)
[2017-12-20] MEDS: REMERON PO SCH (22:04)
[2017-12-21] MEDS: VISTARIL PO PRN ×2 (04:06→10:57)
[2017-12-21] MEDS: MORPHINE IV PRN ×2 (06:43→15:06)
[2017-12-21] MEDS: HumuLIN R SUB-Q SCH ×2 (08:51→13:01)
[2017-12-21] MEDS: NORVASC PO SCH (09:27)
[2017-12-21] MEDS: LOVENOX SUB-Q SCH (09:27)
[2017-12-21] MEDS: HCTZ PO SCH (09:27)
[2017-12-21] MEDS: IMDUR PO SCH (09:28)
[2017-12-21] MEDS: HABITROL TD SCH (09:28)
[2017-12-21] MEDS: TRADJENTA PO SCH (09:28)
[2017-12-21] MEDS: SODIUM CHLORIDE FLUSH SYRINGE 10 ML IV SCH (09:29)
[2017-12-21 12:28] VITALS: BP 117/77
--- NOTE | 2017-12-21 13:14 | Progress Note ---
Subjective - Reason for Consult Consult date: 12/21/17 Reason for consult: Psychiatry Follow-up - Chief Complaint Chief complaint: "I feel much better" 57-year-old female presents to emergency with complaints of overdose and suicide attempt. Today the patient is calm and cooperative during the assessment. She stated that she will follow up with outpatient psy/rehab services when discharged. She stated that she want a better life for herself. She stated that she spoke with her son and the conversation went "okay." She denies SI/HI's and AVH's. She denies any side effects of her medications. Mental Status Exam - Vital signs Last Vital Signs Temp 99.0 F 12/21/17 12:27 Pulse 109 H 12/21/17 12:27 Resp 18 12/21/17 12:27 BP 117/77 12/21/17 12:27 Pulse Ox 94 12/21/17 12:27 - Exam Narrative exam: MSE: Appearance: calm, cooperative Behavior: regular eye contact Speech: regular rate and tone Mood: "okay" Affect: congruent to mood Thought Process: logical Thought Content: denies SI/HI's and AVH's Motor Activity: ambulatory Cognition: A/O x 3 Insight: appropriate Judgment: appropriate Assessment and Plan Impression: MDD, Severe Type. Unspecified Anxiety DO. Substance Use DO (cocaine) . Today the patient is calm and cooperative during the assessment. The patient is no threat to self. DDx: R/O Bipolar DO, R/O Substance Induced Mood DO I. This screening and assessment is based on information collected from the following sources: II. SUICIDE RISK SCREENING (within last 30 days): A.) Suicidal thoughts/behaviors: Yes SUICIDE RISK ASSESSMENT III. FACTORS THAT INCREASE RISK: A.) Demographic and Substance Use Factors: Yes (Cocaine) B.) Current/Recent Factors (within past 3 months): Psychosocial/Environmental Factors: Life Stressors Physical Illness: None Cognitive/Psychological Factors: None C.) Historical Factors: None D.) Diagnostic/Symptom/Treatment Factors: None E.) Acute Risk Factor Severity (DESC; MILD/MOD/SEVERE): Mild Other factors for this individual that increase risk: None IV. FACTORS THAT DECREASE RISK: Resilience/Protective Factors: Patient want to decrease her stress and stop using recreational drugs Other factors for this individual that decrease risk: Patient denies a desire to harm self V. Clinician's Formulation of Risk and Determination of level of Care: This is a 57-year-old white female who took several pills to kill herself. She stated that she could have dealt with her crisis in another way. She stated that she should have called an crisis hotline instead of taking pills. She stated that her action was unsafe. She stated that she will follow-up with outpatient psy/rehab services once discharged. Additionally, she has become insightful about how to better address issues. The patient is not impaired by substance. She is able to take care of his ADLs and is not at imminent risk of harm to self or others. Consequently, it is the opinion of the treatment team that the patient is at low risk of suicide and does not meet criteria to continue an involuntary psychiatric hold. Estimation of Imminent Risk: Low due to the above explanation. Determination of Level of Care based on Suicide Risk: Outpatient follow-up. Narrative description of clinical reasoning. Given the fact that the patient is willing to engage in outpatient/rehab services care, it is reasonable to expect that the patient will seek services. She is regretful of the decision prior to her admission to the hospital and has several things in her life to look forward to. At this current time, she is not impulsive and does not have any risk factors to increase the likelihood of her impulsive behavior. Therefore, it is reasonable to expect that the patient will engage in outpatient/rehab services which will reduce further unsafe behaviors. . Plan and Interventions based on Suicide Risk: This patient will likely be stepped down to an outpatient mental health center in the community upon discharge and follow-up within 7 days of her discharge from the hospital. VII. Discharge/After Hours Support Plan: Patient can return back to the ER, call 911 or crisis line if symptoms of depression, anxiety, suicidality return. Recommendation/Plan: Rescind 1013. Continue Remeron 15 mg PO HS for depression and Vistaril 25 mg PO Q6hrs PRN for acute anxiety. Discussed possible suicidality/medication induced funmi with the patient reference Remeron. Discussed the importance to abstain from recreational drug use. Safety contract completed with the patient. The patient can follow up with [facility] for outpatient psy/rehab services.
--- NOTE | 2017-12-21 15:42 | Discharge Summary ---
Providers - Providers Date of Admission: 12/15/17 23:27 Date of discharge: 12/21/17 Attending physician: ANDRIY GARCÍA 12/15/17 23:27 Consult to Mental Health [CONS] Routine Reason For Exam: SI Place consult to:: PSYCH Notified:: PSYCH Phone number called:: [phone] Was contact made?: Yes If yes, spoke with:: [place] Time called:: 09:13 Primary care physician: [employer] Hospitalization Condition: Critical Disposition: DC-01 TO HOME OR SELFCARE Time spent for discharge: 32 min Core Measure Documentation - Palliative Care Palliative Care/ Comfort Measures: Not Applicable - Core Measures Any of the following diagnoses?: none Exam - Constitutional Vitals: Temp Pulse Resp BP Pulse Ox 99.0 F 109 H 18 117/77 94 12/21/17 12:27 12/21/17 12:27 12/21/17 12:27 12/21/17 12:27 12/21/17 12:27 Plan Additional Instructions: Follow behavioral health/psychiatric history in 2-3 days Follow up with: PRIMARY CARE, [Primary Care Provider] - 7 Days Prescriptions: amLODIPine [Norvasc] 5 mg PO QDAY #30 tablet hydroCHLOROthiazide [HCTZ] 25 mg PO QDAY #30 tablet hydrOXYzine PAMOATE [Vistaril] 25 mg PO Q6H PRN #20 capsule PRN Reason: Anxiety Mirtazapine [Remeron] 15 mg PO QHS #10 tablet Nicotine [Habitrol] 21 mg TD QDAY #30 patch
== END 2017-12-21 16:42 | disposition home or self-care (01) | DRG 918 ==
LOC: ED 19:47 → 4A 23:27
PROVIDERS: ADMIT Internal Medicine; ATTEND Internal Medicine
DX: T38.3X2A Poisoning by insulin and oral hypoglycemic [antidiabetic] drugs, intentional self-harm, initial encounter (principal); E87.6 Hypokalemia; I10 Essential (primary) hypertension; E11.9 Type 2 diabetes mellitus without complications; F14.988 Cocaine use, unspecified with other cocaine-induced disorder; F32.2 Major depressive disorder, single episode, severe without psychotic features; B19.20 Unspecified viral hepatitis C without hepatic coma; G89.29 Other chronic pain; M54.9 Dorsalgia, unspecified; G40.909 Epilepsy, unspecified, not intractable, without status epilepticus; F17.210 Nicotine dependence, cigarettes, uncomplicated; T43.222A Poisoning by selective serotonin reuptake inhibitors, intentional self-harm, initial encounter; T46.1X2A Poisoning by calcium-channel blockers, intentional self-harm, initial encounter; I25.10 Atherosclerotic heart disease of native coronary artery without angina pectoris; Z86.73 Personal history of transient ischemic attack (TIA), and cerebral infarction without residual deficits; Z95.1 Presence of aortocoronary bypass graft; Z90.710 Acquired absence of both cervix and uterus; Z90.49 Acquired absence of other specified parts of digestive tract; Z82.49 Family history of ischemic heart disease and other diseases of the circulatory system; Z88.5 Allergy status to narcotic agent; Z88.8 Allergy status to other drugs, medicaments and biological substances; Z91.5 Personal history of self-harm; Z98.51 Tubal ligation status; Z71.6 Tobacco abuse counseling; Y92.098 Other place in other non-institutional residence as the place of occurrence of the external cause; Z79.84 Long term (current) use of oral hypoglycemic drugs
CPT/HCPCS: 36415; 80048; 80053; 80307; 80320; 82962; 83036; 83735; 85025; 87076; 87086; 87186; 93005; 93010; 99291; 99406; A9270-GY; G0480; J1650; J1815; J2270; J7030; Q0177